=== PATIENT | female | born 2000 | race Two or more races ===

== ENCOUNTER 2022-05-10 02:07 | Emergency (ER) | payer OTHER ==
[~2022-05-10] VITALS: Ht 152.4 cm; Wt 70.3 kg
--- NOTE | 2022-05-10 02:36 | NUR ---
BIBS C/O LOW BLOOD SUGAR S/P INSULIN PUMP MALFUNCTION; BG 121 AT TRIAGE. AWAKE AND ALERT X4 BREATHING EVEN AND UNLABORED. ALL V/S WNL.
--- NOTE | 2022-05-10 02:46 | NUR ---
20g IV LINE ESTABLISHED LAC. BLOOD DRAWN AND SENT TO LAB.
[2022-05-10 03:08] LABS: BASOPHILS # (AUTO) 0.1 K/uL (0.0-0.2); BASOPHILS % (AUTO) 0.5 % (0.0-2.0); EOSINOPHILS % (AUTO) 1.4 % (0.0-6.0); HEMATOCRIT 48 % (33-45); HEMOGLOBIN 15.5 g/dL (11.5-14.8); LYMPHOCYTES # (AUTO) 2.5 K/uL (0.8-4.8); LYMPHOCYTES % (AUTO) 22.2 % (20.0-44.0); MEAN CORPUSCULAR HGB CONC 33 g/dl (31.0-36.0); MEAN CORPUSCULAR VOLUME 89 fL (82-100); MONOCYTES # (AUTO) 0.8 K/uL (0.1-1.30); MONOCYTES % (AUTO) 7.5 % (2.0-12.0); NEUTROPHILS # (AUTO) 7.5 K/uL (1.8-8.9); NEUTROPHILS % (AUTO) 68.4 % (43.0-81.0); PLATELET COUNT (AUTO) 234 K/uL (150-450); RED BLOOD CELL COUNT(AUTO) 5.33 MIL/uL (4.0-5.2)
[2022-05-10 03:17] LABS: CALCIUM, SERUM 8.9 mg/dL (8.5-10.1); CREATININE 0.7 mg/dL (0.6-1.3)
[2022-05-10 03:23] LABS: ALBUMIN 3.7 g/dL (3.4-5.0); BILIRUBIN,DIRECT 0.1 mg/dL (0.0-0.2); BILIRUBIN,TOTAL 0.3 mg/dL (0.2-1.0); TOTAL PROTEIN, SERUM 7.5 g/dL (6.4-8.2)
--- NOTE | 2022-05-10 03:56 | NUR ---
Patient discharged to home in stable condition. Written and verbal after care instructions given. Patient verbalizes understanding of instruction.IV removed. Catheter intact and site benign. Pressure and 4x4 applied to site. No bleeding noted.
[2022-05-10 03:59] VITALS: BP 129/86
== END 2022-05-10 03:59 | disposition home or self-care (01) ==
LOC: ER 02:11
DX: T85.9XXA Unspecified complication of internal prosthetic device, implant and graft, initial encounter (principal); Z71.1 Person with feared health complaint in whom no diagnosis is made; E10.9 Type 1 diabetes mellitus without complications
CPT/HCPCS: 36415; 80048-TC; 80076-TC; 82962-TC; 85025-TC

== ENCOUNTER 2022-05-18 06:31 | Emergency (ER) | payer OTHER ==
[~2022-05-18] VITALS: Ht 152.4 cm; Wt 70.3 kg
--- NOTE | 2022-05-18 06:40 | NUR ---
TO ER BED 9. BIBBF C/O NAUSEA AND VOMITTING S/P DRINKING ALCOHOL LAST NIGHT. PT IS ALERT AND ORIENTED . AMBULATORY WITH STEADY GAIT. BREATHING IS EVEN AND NONLABORED. CONNECTED TO MONITOR. EMESIS BAG PROVIDED. AWAITING MD ORDERS
[2022-05-18] MEDS ORDERED: ONDANSETRON HCL/PF 4 MG/2 ML VIAL ONE (06:47)
--- NOTE | 2022-05-18 06:48 | NUR ---
PT UNABLE TO PROVIDE URINE AT THIS TIME
--- NOTE | 2022-05-18 06:54 | NUR ---
RAC #[id number] S/L BLOOD COLLECTED AND SENT TO LAB
[2022-05-18] MEDS ORDERED: ONDANSETRON HCL/PF 4 MG/2 ML VIAL IVP ONE (07:00)
[2022-05-18] MEDS ORDERED: IV NS 0.9% 1,000 ML BAG IV ONE (07:00)
[2022-05-18 07:01] LABS: BASOPHILS % (AUTO) 0.5 % (0.0-2.0); EOSINOPHILS % (AUTO) 0.6 % (0.0-6.0); HEMATOCRIT 45 % (33-45); HEMOGLOBIN 15.1 g/dL (11.5-14.8); LYMPHOCYTES # (AUTO) 1.4 K/uL (0.8-4.8); LYMPHOCYTES % (AUTO) 18.7 % (20.0-44.0); MEAN CORPUSCULAR HGB CONC 33 g/dl (31.0-36.0); MEAN CORPUSCULAR VOLUME 90 fL (82-100); MONOCYTES # (AUTO) 0.4 K/uL (0.1-1.30); MONOCYTES % (AUTO) 5.3 % (2.0-12.0); NEUTROPHILS # (AUTO) 5.8 K/uL (1.8-8.9); NEUTROPHILS % (AUTO) 74.9 % (43.0-81.0); PLATELET COUNT (AUTO) 234 K/uL (150-450); RED BLOOD CELL COUNT(AUTO) 5.05 MIL/uL (4.0-5.2); WHITE BLOOD COUNT (AUTO) 7.7 K/uL (4.3-11.0)
[2022-05-18 07:10] LABS: CALCIUM, SERUM 8.3 mg/dL (8.5-10.1); CREATININE 0.7 mg/dL (0.6-1.3)
[2022-05-18 07:14] LABS: ALBUMIN 3.7 g/dL (3.4-5.0); BILIRUBIN,DIRECT 0.1 mg/dL (0.0-0.2); BILIRUBIN,TOTAL 0.3 mg/dL (0.2-1.0); TOTAL PROTEIN, SERUM 7.3 g/dL (6.4-8.2)
[2022-05-18] MEDS ORDERED: ONDA4TAB5 PO (08:54)
--- NOTE | 2022-05-18 08:56 | NUR ---
PT VERBALIZED THAT SHE HAS NOT URINATED YET; PROVIDED GLASS OF WATER.
--- NOTE | 2022-05-18 09:10 | NUR ---
URINE SAMPLE COLLECTED, AWAITING PICKUP FROM LAB. PT STATES THAT HER URINE IS REDDISH BECAUSE SHE'S MENSTRUATING AT THIS TIME.
[2022-05-18 09:29] LABS: BILIRUBIN,URINE NEGATIVE (NEGATIVE); COLOR,URINE AMBER (YELLOW); LEUKOCYTE ESTERASE ,URINE NEGATIVE (NEGATIVE); NITRITE, URINE NEGATIVE (NEGATIVE); PH,URINE 8.5 (5.0-8.0); PROTEIN,URINE TRACE mg/dl (NEGATIVE); UGLUCOSE 100 MG/DL mg/dL (NEGATIVE); UROBILINOGEN,URINE 0.2 EU/dL (0.2)
[2022-05-18 09:55] LABS: BACTERIA,URINE Rare /HPF (None Seen); WBC,URINE NONE SEEN /HPF (0-3)
[2022-05-18 09:56] LABS: RBC,URINE 21-50 /HPF (0-2)
--- NOTE | 2022-05-18 10:06 | NUR ---
IV removed. Catheter intact and site benign. Pressure and 4x4 applied to site. No bleeding noted.
--- NOTE | 2022-05-18 10:08 | NUR ---
Patient discharged to home in stable condition. Written and verbal after care instructions given. Patient verbalizes understanding of instruction.
[2022-05-18 10:09] VITALS: BP 137/84
== END 2022-05-18 10:10 | disposition home or self-care (01) ==
LOC: ER 06:32
DX: R11.2 Nausea with vomiting, unspecified (principal); E11.9 Type 2 diabetes mellitus without complications
CPT/HCPCS: 99283; 96374; 96361; 85025; 80048; 80076; 84703; 81001; 36415; J2405; J7030